=== PATIENT | male | born 1950 ===

== ENCOUNTER 2016-08-15 08:00 | Outpatient (RCR) | payer BC | END 2016-09-09 16:14 | disposition home or self-care (01) | LOC: PT 08:00 | PROVIDERS: ATTEND Family Medicine | DX: M25.562 Pain in left knee (principal) ==

== ENCOUNTER 2016-10-28 06:19 | Day surgery (SDC) | payer BC ==
[2016-10-28] VITALS (8 sets, daily range): BP systolic 129–148; BP diastolic 71–100
[~2016-10-28] VITALS: Ht 180.3 cm; Wt 89.0 kg
[~2016-10-28 06:19] MED LIST: AMOX875T2 PO; ANXIETY MED PO; CETI10CA PO; CHOESTEROL MED PO; CITA20SO PO; DICY20TA10 PO; HYDR-3702 PO; LACTATED RINGERS 1,000 ML IV SCH; LOVA40TA2 PO; OMEP20CA12 PO; SODIUM CHLORIDE FLUSH 3 ML SYR IV PRN; STOMACH MED PO; [UNRECOGNIZED DRUG - REMARK] PO
--- OUTSIDE RECORDS SUMMARY | 2016-10-28 06:23 | XMS REPORT | Continuity of Care Document ---
Author Author [facility] Address Unknown Phone Unavailable Allergies Active Description Code Type Severity Reaction Onset Reported/Identified Relationship to Patient Clinical Status Yes morphine 1545 1 N/A makes pt sick to his stomach Yes morphine 1545 1 N/A N/A Yes No Known Drug Allergies [id number] Drug Allergy Unknown N/ A 12/28/2013 Medications Problems Date Dx Coded Attending Type Code Diagnosis Diagnosed By 06/08/1613 MYKE GONZÁLES, KIMBER Chacko Ot M25.562 PAIN IN LEFT KNEE 12/28/2013 DARIUS GONZÁLES, DANDRE Robles Ot 380.4 IMPACTED CERUMEN 12/28/2013 DARIUS GONZÁLES, DANDRE Robles Ot 462 ACUTE PHARYNGITIS 09/16/2015 MYKE GONZÁLES, KIMBER Chacko Ot R19.7 09/17/2015 KIMBER STRINGER MD Ot R19.7 08/02/2016 MYKE GONZÁLES, KIMBER Chacko Ot R19.7 DIARRHEA, UNSPECIFIED 08/12/2016 MYKE GONZÁLES, KIMBER Chacko Ot M25.562 PAIN IN LEFT KNEE 08/31/2016 KIMBER STRINGER MD Ot M25.562 PAIN IN LEFT KNEE 09/09/2016 KIMBER STRINGER MD Ot M25.562 PAIN IN LEFT KNEE 10/12/2016 W M25.562 Pain in left knee 10/12/2016 W S83.212A Bucket-handle tear of medial meniscus of left knee as current injury, initial encounter Procedures Code [place] [address] MRI JNT OF LWR EXTRE W/O DYE 08/16/2016 32761 OFFICE/OUTPATIENT VISIT NEW 08/16/2016 57348 OFFICE/OUTPATIENT VISIT EST 09/06/2016 Results Encounters ACCT No. Visit Date/Time Discharge Status Pt. Type Provider Facility Loc./Unit Complaint [id number] 08/15/2016 08:00:00 2016 16:14:00 DIS Outpatient MYKE GONZÁLES, KIMBER Chacko [facility] PT LEFT KNEE PAIN [id number] 12/28/2013 15:45:00 2013 16:13:00 DIS Emergency DARIUS GONZÁLES, [facility] ED [id number] 10/28/2016 07:30:00 PEN Preadmit SIERRA GONZÁLES, [facility] ASC COLONOSCOPY [id number] 08/27/2015 09:51:00 ACT Outpatient MYKE GONZÁLES, [facility] LAB LAB WORK
[2016-10-28] MEDS ORDERED: MIDAZOLAM 2 MG/2 ML (VERSED) VIAL ONE (07:03)
[2016-10-28] MEDS ORDERED: PROPOFOL 20 ML IV ONE (07:03)
[2016-10-28] MEDS ORDERED: ALFENTANIL 500 MCG/ML (ALFENTA) 5 ML AMP IV ONE (07:03)
--- NOTE | 2016-10-28 09:57 | OPERATIVE REPORT ---
DATE OF OPERATION: 10/28/2016 PRE-OPERATIVE DIAGNOSIS: Screening colonoscopy POST-OPERATIVE DIAGNOSIS: Colon polyp OPERATIVE PROCEDURE: Total colonoscopy with endoscopic mucosal resection SURGEON: Josh Villatoro MD ANESTHESIA: Monitored anesthesia care FINDINGS: 1. The bowel prep was fair. There was some particulate matter in dependent areas of the colon that was able to be irrigated and suctioned in order to see. The exam was considered adequate. 2. A sessile polyp was noted in the proximal transverse colon. This was removed using the saline lift and cautery snare. Pathology is pending. No other polyps were seen. 3. No diverticula, inflammation, or angiodysplasia were noted. INDICATION: The patient is a 66-year-old referred by Dr. Acevedo for colonoscopy screening. He has not had any bowel habit changes and his family history is negative for colorectal cancer. DESCRIPTION OF PROCEDURE: The patient was informed of the risks and benefits and agreed to proceed. He was placed in the left lateral decubitus position and administered IV sedation. When properly sedated a rectal exam was performed, which was normal. The lighted endoscope was then passed into the rectum and advanced along the colon to the cecum. The ileocecal valve and the appendiceal orifice were easily seen. The scope was brought back onto the ascending and proximal transverse colon where this polyp was noted and removed using the endoscopic mucosal resection. The scope was withdrawn through the transverse, descending, and sigmoid colon. No other polyps or neoplasia were seen. The rectum appeared normal on regular view and retroflexion. The scope was removed completing the procedure. The patient tolerated the procedure without complications.
== END 2016-10-28 11:03 | disposition home or self-care (01) ==
LOC: ASC 06:19
PROVIDERS: ATTEND Surgery
DX: Z12.11 Encounter for screening for malignant neoplasm of colon (principal); D12.3 Benign neoplasm of transverse colon; G47.33 Obstructive sleep apnea (adult) (pediatric); K21.9 Gastro-esophageal reflux disease without esophagitis; Z79.899 Other long term (current) drug therapy
CPT/HCPCS: 45390; J2250; J7120